=== PATIENT | female | born 1995 | race Caucasian/White ===

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

== ENCOUNTER 2017-02-12 12:46 | Emergency (ER) | payer MEDICAID ==
[2017-02-12 12:55] VITALS: BP 116/81
[2017-02-12 13:20] LABS: RAPID STREP SCREEN REAGENT QC YELLOW (YELLOW)
--- NOTE | 2017-02-12 13:43 | ED Physician Documentation ---
PD HPI URI - Stated complaint Stated Complaint: THROAT PX - Chief complaint Chief Complaint: Heent - History obtained from History obtained from: Patient - History of Present Illness Timing - onset: Yesterday Timing duration: Days (2) Timing details: Abrupt onset, Still present Associated symptoms: Sore throat, Swollen nodes (mild anterior). No: Fever, Nasal congestion, Dry cough Contributing factors: No: Sick contact, Travel, Immunocompromised Similar symptoms before: Has not had sx before Recently seen: Emergency Dept (seen at [facility] ER yesterday; she is concerned as her father has cancer and gets chemo, she does not want to give him strep. we talked about viral being contagious too. Had negative strep test yesterday and was not given any Rx.) Review of Systems Constitutional: denies: Fever Ears: denies: Ear pain Nose: reports: Sinus pressure / pain (mild around left eye). denies: Rhinorrhea / runny nose, Congestion Throat: reports: Sore throat, Swollen tonsils Respiratory: denies: Cough GI: denies: Nausea, Vomiting, Diarrhea : denies: Dysuria, Frequency Skin: denies: Rash Neurologic: denies: Generalized weakness, Headache PD PAST MEDICAL HISTORY - Past Medical History Cardiovascular: None Respiratory: None Neuro: None Endocrine/Autoimmune: None GI: None COPYWRITING INTERN: None : None HEENT: None Psych: None Musculoskeletal: None Derm: None - Past Surgical History Past Surgical History: Yes General: Other - Present Medications Home Medications: Ambulatory Orders Medication Instructions Recorded Confirmed Dexamethasone [Decadron] 4 mg PO DAILY #5 tablet 02/12/17 Medroxyprogesterone Acetate 1 appful IM ONCE 02/12/17 02/12/17 [Depo-Provera] Omeprazole [Omeprazole] 20 mg PO DAILY 02/12/17 02/12/17 - Allergies Allergies/Adverse Reactions: Allergies Allergy/AdvReac Type Severity Reaction Status Date / Time No Known Drug Allergies Allergy Verified 02/12/17 12:55 - Social History Does the pt smoke?: No Smoking Status: Never smoker Does the pt drink ETOH?: No Does the pt have substance abuse?: No - Immunizations Immunizations are current?: Yes - POLST Patient has POLST: No PD ED PE NORMAL - Vitals Vital signs reviewed: Yes - General General: Alert and oriented X 3, Well developed/nourished - HEENT HEENT: PERRL (no discharge), Ears normal. No: Pharynx benign (some swelling of tonsils but not very red nor any exudate) - Neck Neck: Supple, no meningeal sign, Other (mild left anterior adenopathy) - Cardiac Cardiac: RRR, No murmur - Respiratory Respiratory: Clear bilaterally - Abdomen Abdomen: Soft, Non tender - Derm Derm: Normal color, Warm and dry, No rash - Neuro Neuro: Alert and oriented X 3, specialty foods cook 2-12 intact Results - Vitals Vitals: Vital Signs - 24 hr 02/12/17 12:53 Temperature 36.2 C L Heart Rate 77 Respiratory 14 Rate Blood Pressure 116/81 H O2 Saturation 100 Oxygen O2 Source Room air - Labs Labs: Laboratory Tests 02/12/17 12:58 Group A Strep Rapid Negative PD MEDICAL DECISION MAKING - ED course Complexity details: considered differential (negative strep and low on Centor; presume viral ), d/w patient Departure - Departure Disposition: 01 Home, Self Care Clinical Impression: Viral pharyngitis Condition: Stable Record reviewed to determine appropriate education?: Yes Instructions: ED Pharyngitis Viral Follow-Up: Esther Daniel [employer] [Primary Care Provider] - Prescriptions: Dexamethasone [Decadron] 4 mg PO DAILY #5 tablet Comments: Your strep test is negative and it does not look strep like at this time. The rapid test is not completely accurate and so there is a culture pending which will result in 2 days. We will call you if it shows signs of bacterial infection. Meanwhile assume viral infection and use Tylenol or ibuprofen if needed for pains, frequent antiseptic or mouthwash rinse 2-3 times a day, and you can use oral steroids to help reduce swelling and pain for the next few days. Recheck if not better over 4-5 days. Discharge Date/Time: 02/12/17 14:16
[2017-02-12] MEDS ORDERED: DEXAMETHASONE 10 MG/ML VIAL PO STA (13:56)
[2017-02-12] MEDS ORDERED: ACETAMINOPHEN 325 MG TABLET PO STA (13:56)
[2017-02-12] MEDS ORDERED: CHERRY SYRUP 10 ML UDC PO ONE (14:05)
[2017-02-12] MEDS ORDERED: ACETAMINOPHEN 325 MG TABLET PO ONE (14:05)
[2017-02-12] MEDS ORDERED: DEXAMETHASONE 10 MG/ML VIAL ONE (14:05)
== END 2017-02-12 14:16 | disposition home or self-care (01) ==
LOC: ED 12:46
DX: J02.8 Acute pharyngitis due to other specified organisms (principal); B97.89 Other viral agents as the cause of diseases classified elsewhere
CPT/HCPCS: 87070; 87430; 99282; 99283; A9270